=== PATIENT | male | born 1995 | race Caucasian/White ===

== ENCOUNTER 2018-11-07 12:25 | Emergency (ER) | payer MEDICAID ==
[~2018-11-07] VITALS: Ht 182.9 cm; Wt 73.0 kg
[2018-11-07 13:28] LABS: BASOPHILS % 0.6 % (0.0-2.0); EOSINOPHILS % 1.9 % (0.0-5.0); HEMATOCRIT. 42.7 % (42.0-52.0); HEMOGLOBIN. 14.7 g/dL (14.0-18.0); LYMPHOCYTES % 27.6 % (20.0-50.0); MEAN CORPUSCULAR HEMOGLOBIN 29.7 pg (28.0-32.0); MEAN CORPUSCULAR VOLUME 86.3 fL (80.0-94.0); MEAN PLATELET VOLUME 8.4 fl (7.4-10.4); MONOCYTES % 6.3 % (2.0-8.0); NEUTROPHILS % 63.6 % (40.0-76.0); PLATELET 229 x1000/uL (130-400); RED BLOOD CELL COUNT 4.94 mill/uL (4.7-6.1); RED CELL DISTRIBUTION WIDTH 12.8 % (11.6-14.6)
[2018-11-07 13:32] LABS: CHLORIDE 106 mEq/L (98-107)
[2018-11-07] MEDS ORDERED: LEVETIRACETAM 1000MG/100ML 100 ML IV ONE (13:45)
[2018-11-07 14:26] LABS: CHLORIDE 106 mEq/L (98-107)
[2018-11-07 14:31] LABS: ETHANOL BLOOD < 10 mg/dL
[2018-11-07 14:32] LABS: PROTHROMBIN TIME 10.3 sec (9.1-11.1)
[2018-11-07] MEDS ORDERED: ACETAMINOPHEN 325MG TABLET PO ONE (14:45)
[2018-11-07 17:36] VITALS: BP 122/88
== END 2018-11-07 17:39 | disposition home or self-care (01) ==
LOC: ER 12:25
DX: R51 Headache (principal)
CPT/HCPCS: 36415; 70450; 80053; 80305; 80320; 85025; 85610; 96365; 99284; J1953; G0480